=== PATIENT | female | born 1940 | race Caucasian/White ===

== ENCOUNTER 2025-02-15 05:07 | Emergency (ER) | payer MEDICARE, SELFPAY ==
[2025-02-15 05:11] VITALS: BP 179/83
--- NOTE | 2025-02-15 05:31 | ED.GENMED ---
History of Present Illness
General
Chief Complaint: Fall
Source: patient, ambulance crew and care home
Exam Limitations: dementia
Time Seen by Provider: 02/15/25 05:12
Nursing documentation reviewed up to this point in time: agreed with
History of Present Illness
History of Present Illness:
This is an 84-year-old woman with history of vascular dementia, hmv-pzbkzkx-hoilrnnyk diabetes, hypothyroidism, TIA. She resides at a local care home/memory care unit. She presents via EMS after suffering an unwitnessed fall. Found to lying
next to her bed, care home staff suspect patient rolled out of bed. Patient herself has no recollection of fall.
According to EMS, daughter was notified and requested patient be evaluated in the ED.
She complains of mild pain to her right shoulder, mild pain to her left knee and according to EMS was initially complaining of mild posterior neck pain.
She arrives via EMS with cervical collar in place. She denies weakness or numbness, denies headache, denies chest pain nor shortness of breath, denies abdominal or back pain.
She takes no anticoagulants.
Cervical collar removed by myself.
Patient reports no difficulty with ambulation. She states she generally does not require ambulatory assistive devices.
Past History
Past History
ED Past Medical History: CVA, HTN, Hypercholesterolemia, NIDDM, Hypothyroidism, Psychiatric (Depression) and Other (Vascular dementia; osteoarthritis)
Social History
Tobacco: Non-smoker
Alcohol: None
Living: care home (Memory care unit)
Family History
Family History: Unable to obtain
Phy Exam
Physical Exam
Physical Exam:
TRAUMA EXAM:
VITAL SIGNS: Vital signs reviewed, cooperative
DISTRESS: No active disease. 84-year-old woman appears her stated age, bright and alert, pleasant, appears in no acute distress.
EYES: Pupils reactive, no orbital trauma
NOSE: No deformity or epistaxis
FACE AND SCALP: No scalp or facial trauma, external canals no blood
NECK: Supple, minimal tenderness lower cervical paravertebral region. No midline tenderness nor step-off deformity. Full range of motion without difficulty or pain.
BACK: Back nontender, pelvis stable to compression
RESPIRATORY: No distress, breath sounds normal, no tender chest wall
CARDIAC: No murmur, pulses equal and strong
ABDOMEN: Rotund, soft nontender bowel sounds normal
SKIN: Skin intact no bleeding, color normal
EXTREMITIES: Mild tenderness right shoulder, no tenderness to the clavicle. Full range of motion right shoulder with increased pain with abduction greater than 90 degrees. No crepitus. No tenderness to the upper arm nor forearm. There is mild
tenderness left anterior knee. No effusion nor contusion nor ecchymosis. Full knee range of motion without crepitus nor significant pain. There is no bony pelvic tenderness, no hip tenderness.
NEUROLOGICAL: Alert, oriented x 2, no motor deficits
PSYCH: Mood affect normal
Course
Orders/Labs/Results
Orders:
Orders
02/15/25 05:13
CT Cervical Spine W/o Iv Contr Urgent
Comment:
Reason For Exam: unwitnessed fall, dementia, mild post lwr neck pn
CT Head W/o Iv Contrast Urgent
Comment:
Reason For Exam: unwitnessed fall at [place]. hx of dementia
Knee, Left 4 or More Views [CR Knee - Left 4 Or More View*] Urgent
Comment:
Reason For Exam: fall out of bed, left knee pain
Shoulder, Right, Trauma [CR Shoulder, Trauma - Right] Urgent
Comment:
Reason For Exam: fall out of bed, right shoulder pain
02/15/25 05:45
Bedside Glucose- Treatment ONCE
02/15/25 06:27
Acetaminophen [Tylenol] 1,000 mg PO NOW STA
Abnormal Lab Results
02/15/25
06:00
POC Glucose 327 H mg/dl
(70-99)
Vital Signs
Initial and Last Documented VS:
Initial Vital Signs
Temp Pulse Resp Pulse Ox
98.5 F 84 18 94
02/15/25 05:08 02/15/25 05:08 02/15/25 05:08 02/15/25 05:08
Last Documented Vital Signs
Temp Pulse Resp BP Pulse Ox
98.5 F 84 18 179/83 94
02/15/25 05:08 02/15/25 05:08 02/15/25 05:08 02/15/25 05:11 02/15/25 06:15
MDM/Problems Addressed
Differential Diagnosis Includes:
Concern for occult closed head injury
CVA
Occult cervical spine fracture
Right shoulder contusion, right shoulder fracture less likely.
Left knee contusion, left knee fracture Less likely.
Osteoarthritis flare.
Potential for syncope versus mechanical fall.
Potential for hypoglycemic episode.
Will check Accu-Chek.
Will check CT of the head, cervical spine, right shoulder x-ray, left knee x-ray.
Will continue individualized education plan aide.
Chronic conditions affecting care:
Dementia, poor short-term memory.
Chronic conditions affecting care: DM, Neurological disorder (Dementia, prior CVA ) and Psychiatric illness
*Radiology
Radiology exam reviewed: preliminary read by ED provider (Right shoulder, left knee x-ray showed no evidence of fracture. Moderate DJD. Evidence of 2 small surgical screws right humeral head.) and radiology read reviewed
*Pulse Oximetry
SaO2: 100
Oxygen Mode of Delivery: Room air
Patient hypoxic: no
*Porter Luggage Interpretation
Rate: normal
Interpretation: normal
Rhythm: sinus
*Critical Care Note
Total Time (30-74mins, 75-104mins- exclusive of procedures): Not Applicable
Update Note
Update Note:
06:10
Patient continues to appear comfortable. Sleeps when undisturbed, easily arousable.
Hemodynamically stable.
Random glucose elevated at 327. Unclear as to her baseline diabetic control. According to care home records only maintained on Rybelsus for diabetes. There is nothing on exam to suggest DKA; clinically appears euvolemic, without tachycardia,
no GI symptoms.
X-ray of right shoulder, left knee shows moderate DJD but no evidence of fracture.
CT of the head and cervical spine preliminarily reviewed by myself. No evidence of fracture nor intracerebral hemorrhage. Awaiting radiology report.
If CT is unremarkable we will plan for discharge back to care home for continued care.
I spoke with patient's daughter, Danna, via telephone call. Patient was recently admitted to the [facility] as of Wednesday, 3 days ago. Transitioned from [facility] to this area to be closer to her daughter.
She has history of fek-ntwnjup-xkuxynpfi diabetes, hemoglobin A1c elevated over 11 last week. Rybelsus ordered and daughter does not believe that this has been initiated as yet.
She also notes patient has history of osteoarthritis, chronic knee and shoulder pain, she does require a walker to ambulate but frequently forgets.
She requests we give her mother a dose of Tylenol for discomfort and agreeable with discharge back to care home for continued care.
ED Attending Note
-
Portions of this chart may have been created with voice recognition software.� Occasional wrong word or��sound alike� substitutions may have occurred due to the inherent limitations of voice recognition software.
Discharge Plan
Departure
Patient Disposition: Longterm/SNF
Date of Disposition: 02/15/25
Time of Disposition: 06:14
Patient with high blood pressure during this ER visit?: No
Condition: Good
Discharge Problem:
Fall at care home, Right shoulder strain, Contusion of left knee
Instructions: Contusion (DC), Preventing falls in adults
Prescriptions:
No Action
primidone 50 mg Tablet
50 mg HS
donepezil 10 mg Tablet
10 mg PO HS
hydrocortisone [Proctozone-HC] 2.5 % Cream With Perineal Applicator
1 applic OH DAILY PRN (Reason: pain)
levothyroxine 88 mcg Tablet
88 mcg PO DAILY
hydroxyzine HCl 25 mg Tablet
25 mg PO BID PRN (Reason: Cytokine Release Syndrome)
aspirin 81 mg Tablet
81 mg PO DAILY
polyethylene glycol 3350 [Miralax] 17 gram/dose Powder
8 g PO DAILY
atenolol 50 mg Tablet
50 mg PO DAILY
docusate sodium 100 mg Tablet
100 mg PO BID
escitalopram oxalate [Lexapro] 20 mg Tablet
20 mg PO DAILY
memantine 10 mg Tablet
10 mg PO BID
ezetimibe-simvastatin 10-40 mg Tablet
10 - 40 tab HS
cholecalciferol (vitamin D3) [Vitamin D3] 25 mcg (1,000 unit) Tablet
25 mcg DAILY
diclofenac sodium 1 % Gel
2 g TOPICAL QID
Rybelsus 7 mg Tablet
7 mg PO DAILY
Referrals:
Parris Martinez MD [Family Provider] - Call in 1-3 days for appt
Interventions
Interventions:
*Risk Screen - Suicide Last Done: 02/15/25 05:08
*General Assessment Last Done: 02/15/25 05:08
*Neglect/Abuse Screening Last Done: 02/15/25 05:08
*ED- Fall Risk Assessment Last Done: 02/15/25 05:08
*ED COVID-19 Vaccine History Last Done: 02/15/25 05:08
ED-Musculoskeletal Assessment Last Done: 02/15/25 06:03
ED- Neurological Assessment Last Done: 02/15/25 06:03
ED-Skin Assessment Last Done: 02/15/25 06:03
Discharge Date and Time
Print Language: FRENCH
[2025-02-15 06:02] LABS: Glucose - Point of Care 327 mg/dl (70-99)
[2025-02-15] MEDS: TYLENOL 1000 MG PO (06:32)
[2025-02-15 07:00] VITALS: BP 147/78
[2025-02-15 09:00] VITALS: BP 146/96
[2025-02-15 10:00] VITALS: BP 108/75
== END 2025-02-15 11:07 ==
LOC: EMR 05:07
PROVIDERS: EMERGENCY PHYSICIAN Emergency Medicine; FAMILY PHYSICIAN Internal Medicine Geriatric Medicine
DX: S46.911A Strain of unspecified muscle, fascia and tendon at shoulder and upper arm level, right arm, initial encounter (principal); S80.02XA Contusion of left knee, initial encounter; F01.50 Vascular dementia, unspecified severity, without behavioral disturbance, psychotic disturbance, mood disturbance, and anxiety; E11.9 Type 2 diabetes mellitus without complications; I10 Essential (primary) hypertension; E78.00 Pure hypercholesterolemia, unspecified; E03.9 Hypothyroidism, unspecified; F32.A Depression, unspecified; M17.12 Unilateral primary osteoarthritis, left knee; Z79.82 Long term (current) use of aspirin; Z79.84 Long term (current) use of oral hypoglycemic drugs; Z86.73 Personal history of transient ischemic attack (TIA), and cerebral infarction without residual deficits; W19.XXXA Unspecified fall, initial encounter; Y92.122 Bedroom in nursing home as the place of occurrence of the external cause
CPT/HCPCS: 99284; 70450; 72125; 73030; 73564; 82962